=== PATIENT | male | born 1975 | race American Indian/Alaskan Native ===

== ENCOUNTER 2021-07-20 12:39 | Emergency (ER) | payer SELFPAY ==
[2021-07-20] MEDS ORDERED: Aspirin 81 MG Tab.Chew PO ONE (12:47)
[2021-07-20] MEDS ORDERED: Alum Hydrox/Mag Hydrox/Simeth 15 ML, Lidocaine 2% 5 ML PO ONE ×2 (12:53)
--- NOTE | 2021-07-20 13:19 | CR ---
INDICATION: Chest pain. TECHNIQUE: Chest 1 view. COMPARISON: None. FINDINGS: Cardiovascular and mediastinum: Heart size and vasculature are normal in caliber and appearance. Lungs and pleural spaces: Possible subtle infiltrate in the mid left lung. Remainder of the lungs and pleural spaces are clear. Bones and soft tissues: No significant findings. IMPRESSION: Possible small left lung pneumonia. Dictated by Elder Singletary MD @ 07/20/2021 1:18:28 PM (Electronically Signed)
[2021-07-20 13:23] LABS: BLOOD UREA NITROGEN,BUN 15 mg/dL (7.0-18.0); CARBON DIOXIDE,CO2 26.3 mmol/L (21.0-32.0); CHLORIDE,CL 101 mmol/L (98-107); GLUCOSE RANDOM 114 mg/dL (74-106); POTASSIUM,K 4.3 mmol/L (3.5-5.1); SODIUM,NA 140 mmol/L (136-148)
[2021-07-20] MEDS ORDERED: Ondansetron 4 MG Tab.DIS PO ONE (14:41)
[2021-07-20] MEDS ORDERED: Ondansetron 4 MG/2 ML SDV IVPUSH ONE (14:41)
[2021-07-20] MEDS ORDERED: Famotidine 20 MG Tab PO ONE (14:41)
--- NOTE | 2021-07-20 15:56 | EDM.PDOC ---
ED HPI GENERAL MEDICAL PROBLEM - General Chief Complaint: Chest Pain Stated Complaint: STERNUM PAIN Time Seen by Provider: 07/20/21 12:53 - History of Present Illness INITIAL COMMENTS - FREE TEXT/NARRATIVE: CHIEF COMPLAINT(S): Epigastric pain HISTORY OF PRESENT ILLNESS: This is a 45-year-old man without any significant past medical history who comes to the emergency department with a chief complaint of a epigastric pain. The patient states that he presents to the emergency department with epigastric pain. He states that the pain has been going on since earlier this morning after eating. He rates the pain as 9 out of 10 and sharp. He denies any radiation of the pain. He states that he drank some water but then vomited 2 times. He denies any bloody emesis, hematemesis, bilious emesis, melena or hematochezia. He states that he has never had this before. He states that he also feels chest pain in that same area and denies any shortness of breath, diaphoresis. He denies any excessive alcohol use and denies any history of pancreatitis or cholecystitis. He denies any illicit substance use. There are no relieving factors. REVIEW OF SYSTEMS: Constitutional: Denies fever, chills. Eyes: Denies eye pain Ears, Nose, Mouth, & Throat: Denies earache Cardiovascular: Positive for chest pain Respiratory: Denies shortness of breath Gastrointestinal: Positive for epigastric abdominal pain, nausea, vomiting. Denies diarrhea, hematochezia, hematemesis, bilious emesis Genitourinary: Denies hematuria Skin:Denies a rash MSK: Denies joint pain Neurological: Denies blurred vision Psychiatric: Denies depression PAST MEDICAL HISTORY: As per history of present illness and as reviewed below otherwise noncontributory. SURGICAL HISTORY: As per history of present illness and as reviewed below otherwise noncontributory. SOCIAL HISTORY: As per history of present illness and as reviewed below otherwise noncontributory. FAMILY HISTORY: As per history of present illness and as reviewed below otherwise noncontributory. EXAMINATION OF ORGAN SYSTEMS/BODY AREAS: Constitutional: Blood pressure is 137/79, heart rate 56, respiratory rate 18 with an oxygen saturation of 98% on room air. Temperature 36.0 General: Well-appearing man who is in no acute distress Psychiatric: Appropriate mood and affect. Eyes: No scleral icterus or conjunctival erythema ENMT: Moist mucous membranes. No pharyngeal erythema Cardiovascular: Regular, rate, and rhythm. No gallops, murmurs, or rubs. Bilateral upper extremity pulses symmetric and intact. No peripheral edema. No JVD. Respiratory: Lungs clear to auscultation bilaterally. No wheezes, rales, or rhonchi. Gastrointestinal: Soft, minimal tenderness in the epigastric region. No rebound or guarding. Negative Duggan's and McBurney's normoactive bowel sounds Genitourinary: No suprapubic tenderness Musculoskeletal: Normal range of motion. Skin: No lesions or abrasions. Neurological: Alert, GCS 15 MEDICAL DECISION MAKING AND COURSE IN THE ED WITH INTERPRETATION/REVIEW OF DIAGNOSTIC STUDIES: This is a 45-year-old man without any significant past medical history who comes to the emergency department with few hours of chest pain and epigastric pain associated with vomiting. At this time we did place patient on cardiac monitoring and pulse oximetry. Cardiac monitoring did reveal sinus bradycardia and pulse oximetry with good waveform was 98% on room air. We did obtain a screening EKG was unremarkable. At this time will undergo a cardiac work-up in addition to evaluate for pancreatitis. Will obtain a Covid swab. We will provide the patient with aspirin, famotidine, GI cocktail and Zofran. We will reevaluate for improvement. Laboratory: CBC is unremarkable. INR is normal. CMP reveals elevated creatinine of 1.4 otherwise unremarkable. Troponin is negative. Lipase is normal. Covid is negative. The radiological images were viewed by myself along with reading the report from the radiologist. Chest x-ray does not reveal an acute cardiopulmonary process. On reevaluation I did discuss the results with the patient. At this time he did report improvement. I encouraged the patient to use famotidine daily and follow-up with primary care physician in 3 to 5 days for reevaluation and possible outpatient endoscopy. He was amenable discharge at this time and had no further questions DISPOSITION: The patient was discharged home in stable condition. The patient will follow up with primary care physician in 3 to 5 days CONDITION: Fair PROCEDURES: Cardiac monitoring interpretation, pulse oximetry interpretation FINAL IMPRESSION(S)/DIAGNOSES: 1. Acute chest pain 2. Acute epigastric abdominal pain Russ Ortiz M.D. sternum Pain Score (Numeric/FACES): 9 - Related Data Allergies Allergy/AdvReac Type Severity Reaction Status Date / Time No Known Allergies Allergy Verified 07/20/21 12:51 Home Meds: Home Meds . [No Known Home Meds] 07/20/21 [History] Past Medical History HEENT History: Reports: None Cardiovascular History: Reports: None Respiratory History: Reports: None Gastrointestinal History: Reports: None Genitourinary History: Reports: None Musculoskeletal History: Reports: None Neurological History: Reports: None Psychiatric History: Reports: None Endocrine/Metabolic History: Reports: None Hematologic History: Reports: None Immunologic History: Reports: None Oncologic (Cancer) History: Reports: None Dermatologic History: Reports: None - Infectious Disease History Infectious Disease History: Reports: None - Past Surgical History Head Surgeries/Procedures: Reports: None HEENT Surgical History: Reports: None Cardiovascular Surgical History: Reports: None Respiratory Surgical History: Reports: None GI Surgical History: Reports: None Male Surgical History: Reports: None Endocrine Surgical History: Reports: None Neurological Surgical History: Reports: None Musculoskeletal Surgical History: Reports: None Oncologic Surgical History: Reports: None Dermatological Surgical History: Reports: None Social & Family History - Family History Family Medical History: No Pertinent Family History - Tobacco Use Tobacco Use Status *Q: Never Tobacco User Second Hand Smoke Exposure: No - Caffeine Use Caffeine Use: Reports: None - Recreational Drug Use Recreational Drug Use: No ED ROS GENERAL - Review of Systems Review Of Systems: See Below ED EXAM, GI/ABD - Physical Exam Exam: See Below Course - Vital Signs Last Recorded V/S: Last Vital Signs Temp 36.0 C L 07/20/21 12:49 Pulse 82 07/20/21 16:14 Resp 17 07/20/21 16:14 BP 141/79 H 07/20/21 16:14 Pulse Ox 97 07/20/21 16:14 - Orders/Labs/Meds Labs: Laboratory Tests 07/20/21 07/20/21 07/20/21 Range/Units 12:47 12:47 12:47 WBC 11.81 H (4.0-11.0) K/uL RBC 5.15 (4.50-5.90) M/uL Hgb 15.7 (13.0-17.0) g/dL Hct 45.7 (38.0-50.0) % MCV 88.7 (80.0-98.0) fL MCH 30.5 (27.0-32.0) pg MCHC 34.4 (31.0-37.0) g/dL RDW Std Deviation 42.3 (28.0-62.0) fl RDW Coeff of Brynn 13 (11.0-15.0) % Plt Count 308 (150-400) K/uL MPV 9.70 (7.40-12.00) fL Neut % (Auto) 74.6 (48.0-80.0) % Lymph % (Auto) 19.4 (16.0-40.0) % Izard % (Auto) 5.1 (0.0-15.0) % Eos % (Auto) 0.4 (0.0-7.0) % Baso % (Auto) 0.5 (0.0-1.5) % Neut # (Auto) 8.8 H (1.4-5.7) K/uL Lymph # (Auto) 2.3 (0.6-2.4) K/uL Izard # (Auto) 0.6 (0.0-0.8) K/uL Eos # (Auto) 0.1 (0.0-0.7) K/uL Baso # (Auto) 0.1 (0.0-0.1) K/uL INR 0.95 Sodium 140 (136-148) mmol/L Potassium 4.3 (3.5-5.1) mmol/L Chloride 101 (98-107) mmol/L Carbon Dioxide 26.3 (21.0-32.0) mmol/L BUN 15 (7.0-18.0) mg/dL Creatinine 1.4 H (0.8-1.3) mg/dL Est Cr Clr Drug Dosing 69.52 mL/min Estimated GFR (MDRD) 55.1 ml/min Glucose 114 H (74-106) mg/dL Calcium 8.2 L (8.5-10.1) mg/dL Magnesium 2.0 (1.8-2.4) mg/dL Total Bilirubin 0.4 (0.2-1.0) mg/dL AST 26 (15-37) IU/L ALT 52 (14-63) IU/L Alkaline Phosphatase 98 (46-116) U/L Troponin I < 0.050 (0.000-0.056) ng/mL C-Reactive Protein <0.20 (0.00-0.90) mg/dL Total Protein 7.8 (6.4-8.2) g/dL Albumin 4.0 (3.4-5.0) g/dL Globulin 3.8 (2.6-4.0) g/dL Albumin/Globulin Ratio 1.1 (0.9-1.6) Lipase (73-393) U/L SARS-CoV-2 RNA ([facility]) (NEGATIVE) 07/20/21 07/20/21 Range/Units 12:47 14:10 WBC (4.0-11.0) K/uL RBC (4.50-5.90) M/uL Hgb (13.0-17.0) g/dL Hct (38.0-50.0) % MCV (80.0-98.0) fL MCH (27.0-32.0) pg MCHC (31.0-37.0) g/dL RDW Std Deviation (28.0-62.0) fl RDW Coeff of Brynn (11.0-15.0) % Plt Count (150-400) K/uL MPV (7.40-12.00) fL Neut % (Auto) (48.0-80.0) % Lymph % (Auto) (16.0-40.0) % Izard % (Auto) (0.0-15.0) % Eos % (Auto) (0.0-7.0) % Baso % (Auto) (0.0-1.5) % Neut # (Auto) (1.4-5.7) K/uL Lymph # (Auto) (0.6-2.4) K/uL Izard # (Auto) (0.0-0.8) K/uL Eos # (Auto) (0.0-0.7) K/uL Baso # (Auto) (0.0-0.1) K/uL INR Sodium (136-148) mmol/L Potassium (3.5-5.1) mmol/L Chloride (98-107) mmol/L Carbon Dioxide (21.0-32.0) mmol/L BUN (7.0-18.0) mg/dL Creatinine (0.8-1.3) mg/dL Est Cr Clr Drug Dosing mL/min Estimated GFR (MDRD) ml/min Glucose (74-106) mg/dL Calcium (8.5-10.1) mg/dL Magnesium (1.8-2.4) mg/dL Total Bilirubin (0.2-1.0) mg/dL AST (15-37) IU/L ALT (14-63) IU/L Alkaline Phosphatase (46-116) U/L Troponin I (0.000-0.056) ng/mL C-Reactive Protein (0.00-0.90) mg/dL Total Protein (6.4-8.2) g/dL Albumin (3.4-5.0) g/dL Globulin (2.6-4.0) g/dL Albumin/Globulin Ratio (0.9-1.6) Lipase 208 (73-393) U/L SARS-CoV-2 RNA ([facility]) NEGATIVE (NEGATIVE) Meds: Medications Discontinued Medications Generic Name Dose Route Start Last Admin Trade Name Freq PRN Reason Stop Dose Admin Aspirin 324 mg 07/20/21 12:47 07/20/21 13:17 Aspirin 81 Mg Tab.Chew PO 07/20/21 12:48 324 mg ONETIME ONE Administration Al Hydroxide/Mg Hydroxide 15 0 ml 07/20/21 12:53 07/20/21 13:16 ml/ Lidocaine HCl 5 ml PO 07/20/21 12:54 20 each ONETIME ONE Administration Famotidine 20 mg 07/20/21 14:41 07/20/21 15:52 Famotidine 20 Mg Tab PO 07/20/21 14:42 Not Given ONETIME ONE Ondansetron HCl 4 mg 07/20/21 14:41 07/20/21 15:28 Ondansetron 4 Mg/2 Ml Sdv IVPUSH 07/20/21 14:42 Not Given ONETIME ONE Ondansetron HCl 4 mg 07/20/21 14:41 07/20/21 15:52 Ondansetron 4 Mg Tab.Dis PO 07/20/21 14:42 Not Given ONETIME ONE Departure - Departure Time of Disposition: 15:55 Disposition: Home, Self-Care 01 Condition: Fair Clinical Impression: Gastroesophageal reflux disease, Gastritis - Discharge Information *PRESCRIPTION DRUG MONITORING PROGRAM REVIEWED*: No *COPY OF PRESCRIPTION DRUG MONITORING REPORT IN PATIENT VALERIE: No Instructions: Gastritis, Adult, [id number], Gastroesophageal Reflux Disease, Adult, [id number] Referrals: PCP,None [Primary Care Provider] - Forms: ED Department Discharge Additional Instructions: Your evaluated today on an emergent basis. At this time all of your labs were within normal limits. At this time I do believe your symptoms are likely secondary to reflux disease versus peptic ulcer disease versus gastritis. At this time I do recommend that you use famotidine daily. I recommend that you follow-up with your primary care physician in 3 to 5 days for reevaluation and arrangement for possible outpatient endoscopy. If you have any worsening symptoms please return to the emergency department. Symptoms include vomiting, worsening pain, chest pain, or shortness of breath. [facility] [address] [place], [place] [id number] [place] [address] The patient is informed of any results of their evaluation and diagnostic workup and all questions are answered. They are given discharge instructions and return precautions. The patient is stable for discharge. The patient states they understand and agree with the plan and that they will return if their symptoms get worse or if they have any new concerns. The following information is given to patients seen in the emergency department who are being discharged to home. This information is to outline your options for follow-up care. We provide all patients seen in our emergency department with a follow-up referral. The need for follow-up, as well as the timing and circumstances, are variable depending upon the specifics of your emergency department visit. If you don't have a primary care physician on staff, we will provide you with a referral. We always advise you to contact your personal physician following an emergency department visit to inform them of the circumstance of the visit and for follow-up with them and/or the need for any referrals to a consulting specialist. The emergency department will also refer you to a specialist when appropriate. This referral assures that you have the opportunity for follow-up care with a specialist. All of these measure are taken in an effort to provide you with optimal care, which includes your follow-up. Under all circumstances we always encourage you to contact your private physician who remains a resource for coordinating your care. When calling for follow-up care, please make the office aware that this follow-up is from your recent emergency room visit. If for any reason you are refused follow-up, please contact the [facility] Emergency Department at and asked to speak to the emergency department charge nurse. Sepsis Event Note (ED) - Evaluation Sepsis Screening Result: No Definite Risk
--- NOTE | 2021-07-20 16:24 | PCM.EKG ---
#1 Interpretation EKG Date: 07/20/21 Time: 12:41 Rhythm: NSR Rate (Beats/Min): 50 [place]: Normal P-Wave: Present QRS: Normal ST-T: Normal QT: Normal Comparison: NA - No Prior EKG EKG Interpretation Comments: Sinus Rhythm
== END 2021-07-20 16:14 | disposition home or self-care (01) ==
LOC: MW.ED 12:39
DX: K29.70 Gastritis, unspecified, without bleeding (principal); K21.9 Gastro-esophageal reflux disease without esophagitis; Z20.822 Contact with and (suspected) exposure to COVID-19
CPT/HCPCS: 36415; 71045; 80053; 83690; 83735; 84484; 85025; 85610; 86140; 87635; 93005; 99285; A9270; U0002